=== PATIENT | female | born 1970 | race Caucasian/White ===

== ENCOUNTER 2019-12-27 22:55 | Emergency (ER) | payer OTHER ==
--- NOTE | 2019-12-27 23:22 | ER Document Report ---
ED Medical Screen (RME) - General Chief Complaint: Chest Pain > 30 Stated Complaint: CHEST PAIN Time Seen by Provider: 12/27/19 23:16 Primary Care Provider: JOSÉ LUIS TELLO MD [Primary Care Provider] - Follow up as needed Mode of Arrival: Ambulatory Information source: Patient Notes: 49-year-old female presented to ED for complaint of chest pain. She states this started about an hour ago and goes through to her back. She states is a little better now than it was earlier. She states she did have chest pain about 3 weeks ago states her primary doctor did a EKG chest x-ray and blood work and did not send her to a engineer automated equipment. She states that the pain returned again tonight so she became concerned. She states that when she was seen 3 weeks ago the doctor gave her some Flexeril and she took 1 of those and a 325 mg aspirin when the pain started. She states the pain is a little better than it was earlier. She states she does not smoke or use any illicit drugs but she does drink alcohol once a week. She has a history of high blood pressure ADHD and bladder spasms. She states she has not had any surgeries. She states her mother has a pacemaker and A. fib but all of her mother's brothers and sisters have a cardiac problems. Patient does have epigastric tenderness. So a lipase is also ordered as well as a abdominal ultrasound. I have greeted and performed a rapid initial assessment of this patient. A comprehensive ED assessment and evaluation of the patient, analysis of test results and completion of medical decision making process will be conducted by an additional ED providers. TRAVEL OUTSIDE OF THE [place] 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 bp med Physical Exam - Vital signs Vitals: Temp Pulse Resp BP Pulse Ox 98.0 F 88 20 143/90 H 99 12/27/19 23:06 12/27/19 23:06 12/27/19 23:06 12/27/19 23:06 12/27/19 23:06 Course - Vital Signs Vital signs: Temp Pulse Resp BP Pulse Ox 98.0 F 88 20 143/90 H 99 12/27/19 23:06 12/27/19 23:06 12/27/19 23:06 12/27/19 23:06 12/27/19 23:06 Doctor's Discharge - Discharge Referrals: JOSÉL UIS TELLO MD [Primary Care Provider] - Follow up as needed
--- NOTE | 2019-12-27 23:47 | ER Document Report ---
ED General - General Chief Complaint: Chest Pain > 30 Stated Complaint: CHEST PAIN Time Seen by Provider: 12/27/19 23:16 Primary Care Provider: JOSÉ LUIS TELLO MD [ACTIVE STAFF] - Follow up as needed Mode of Arrival: Ambulatory Notes: 41-year-old female presents emergency department complaining of epigastric abdominal pain that radiates up into her chest and into her back to her right shoulder that started just after eating dinner this evening. Patient describes it as a tightening type pain that comes in waves gets tighter and tighter and then resolves. States that it will come in waves and come back again. States is been going on for several months, did see her primary care physician approximately 3 weeks ago and had an EKG and chest x-ray performed which she states she was told were normal. Denies any nausea, vomiting or shortness of breath with this, denies any radiation to her arms. States that sometimes she can massage the pain away and also states that she tried ibuprofen and Flexeril and it did improve it somewhat. States that since this started happening and she has been concerned that it was her heart she has started taking a daily baby aspirin. Today when it happened she just finished eating a salad, a cream-based oyster soup and a donut. Denies any pain currently. Denies any family history of ischemic cardiac disease in her first-degree relatives however states that 10 of her 11 aunts and uncles have had ischemic coronary artery disease. TRAVEL OUTSIDE OF THE [place] 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 bp med Past Medical History - General Information source: Patient - Social History Smoking Status: Former Smoker - Quit 17 years ago. Frequency of alcohol use: Social Drug Abuse: None Family History: CAD - Aunts and uncles. Mother has atrial fibrillation and a pacemaker., Other - No family history of cholecystectomies or gallstones. Patient has suicidal ideation: No Patient has homicidal ideation: No Review of Systems - Review of Systems Constitutional: No symptoms reported EENT: No symptoms reported Cardiovascular: See HPI, Chest pain. denies: Syncope, Dizziness Respiratory: No symptoms reported. denies: Cough, Hurts to breathe, Short of breath Gastrointestinal: See HPI, Abdominal pain. denies: Diarrhea, Nausea, Vomiting Genitourinary: No symptoms reported -: Yes All other systems reviewed and negative Physical Exam - Vital signs Vitals: Temp Pulse Resp BP Pulse Ox 98.0 F 88 20 143/90 H 99 12/27/19 23:06 12/27/19 23:06 12/27/19 23:06 12/27/19 23:06 12/27/19 23:06 Interpretation: Hypertensive - Notes Notes: GENERAL: Alert, interacts well. No acute distress. HEAD: Normocephalic, atraumatic EYES: Pupils equal, round and reactive to light, extraocular movements intact. ENT: Oral mucosa moist, tongue midline. NECK: Full range of motion, supple, trachea midline. LUNGS: Clear to auscultation bilaterally, no wheezes, rales or rhonchi, no respiratory distress. HEART: Regular rate and rhythm, no murmurs, gallops, rubs. ABDOMEN: Soft, epigastric tenderness to palpation, no right upper quadrant tenderness palpation, no guarding, rigidity, rebounding, nondistended, bowel sounds present in all 4 quadrants. EXTREMITIES: Moves all 4 extremities spontaneously, no edema, radial and d orsalis pedis pulses 2/4 bilaterally. No cyanosis. NEUROLOGICAL: Alert and oriented x3, normal speech. PSYCH: Normal mood, normal affect. SKIN: Warm, Dry, normal turgor, no rashes or lesions noted. Course - Re-evaluation Re-evalutation: 12/28/19 04:03 CBC shows anemia with hemoglobin 11.9, CMP unremarkable, initial troponin is undetectable at 0.012, repeat troponin is detectable but negative at 0.017, EKG is nonischemic, troponin will be repeated in 2 hours to see if it continues to rise and if so does not rise significantly. Patient has been completely chest pain-free since receiving the GI cocktail. Chest X-Ray 12/27/19 23:17 IMPRESSION: No evidence of active intrathoracic disease . Mild chronic change, no adverse change Abdomen Ultrasound 12/28/19 23:18 IMPRESSION: Contracted gallbladder related to the patient not being properly n.p.o. giving an appearance of mild gallbladder wall thickening. If there is high clinical concern for gallbladder disease would recommend repeat right upper quadrant ultrasound when the patient is properly n.p.o. and/or follow-up hepatobiliary scan. 12/28/19 06:04 Troponin has completely normalized. Patient will be discharged to home. - Vital Signs Vital signs: Temp Pulse Resp BP Pulse Ox 98.5 F 88 13 140/102 H 99 12/28/19 03:17 12/27/19 23:06 12/28/19 04:01 12/28/19 04:01 12/28/19 04:01 - Laboratory Result Diagrams: 12/28/19 00:47 12/28/19 00:47 Laboratory results interpreted by me: 12/28/19 00:47 Hgb 11.9 L Hct 34.9 L RDW 16.0 H - EKG Interpretation by Me Additional EKG results interpreted by me: 12/27/19 23:46 EKG shows sinus rhythm at a rate of 84, left axis deviation, normal intervals, less than [address] segment elevation in aVR, no other ST segment elevations or depressions, poor R wave progression per my interpretation. Discharge - Discharge Clinical Impression: Chest pain with low risk for cardiac etiology Condition: Stable Disposition: HOME, SELF-CARE Additional Instructions: Chest Pain of Unclear Cause The exact cause of your chest pain isn't clear. Fortunately, there is no evidence of a dangerous medical condition. Further testing may be required to find the source of the pain. Most often, we find that this pain is coming from the chest wall -- the muscles or rib joints in the chest. But chest pain can come from the lung and lung lining, the esophagus, the heart valves or heart lining, and even the stomach or gallbladder. Rest. Eat lightly until the pain is gone. We may prescribe medicine for pain and inflammation. You should call the physician immediately if the pain radiates to the shoulder, jaw or arms; if you start to run a fever or develop a cough; or if you develop shortness of breath, or other new or alarming symptoms. I suspect your pain is coming from increased acid production in your stomach and possibly refluxing in your throat which is causing esophageal spasm which is causing the tightness in your chest. Please take the antacid of your choice available [id number] such as Pepcid or Zantac 1 tablet twice a day for at least the next month. Please keep a symptom diary as well that includes what foods you are eating before your symptoms show up. It is possible that your symptoms are coming from your gallbladder. Today your gallbladder did not show any signs of infection or obstruction however you can still have what is called biliary colic. Biliary colic can be where when you eat greasy or fatty foods a causes pain when your gallbladder squeezes. This can be further investigated by your primary care physician through a HIDA scan if you notice the pain only shows up when you eat greasy or fatty foods. Prescriptions: Famotidine [Pepcid 20 mg Tablet] 20 mg PO BID #60 tablet Forms: Return to Work Referrals: GLADIS ORTIZ MD [HONORARY] - Follow up as needed
--- NOTE | 2019-12-27 23:50 | RADIOLOGY REPORT (SQ) ---
CLINICAL INDICATION: Center of her chest goes through to her back. TECHNIQUE: PA and lateral views were obtained of the chest COMPARISON: August 14, 2014. FINDINGS: The cardiomediastinal silhouette is normal. The lungs are grossly clear. No evidence of effusion or pneumothorax. Visualized bones are unremarkable. . IMPRESSION: No evidence of active intrathoracic disease . Mild chronic change, no adverse change
[2019-12-28] MEDS ORDERED: MAG HYDROX/AL HYDROX/SIMETH SUSP 30 ML UDCUP PO ONE (00:01)
[2019-12-28] MEDS ORDERED: LIDOCAINE 2% VISCOUS SOLN 15 ML UDCUP PO ONE (00:01)
[2019-12-28] MEDS ORDERED: METOCLOPRAMIDE HCL ORAL SOLN 10 MG/10 ML UDCUP PO ONE (00:01)
[2019-12-28 00:56] LABS: ABSOLUTE BASOPHILS # (AUTO) 0.1 10^3/uL (0.0-0.2); ABSOLUTE EOSINOPHILS # (AUTO) 0.3 10^3/uL (0.0-0.6); ABSOLUTE LYMPHOCYTES (AUTO) 2.9 10^3/uL (0.5-4.7); ABSOLUTE MONOCYTES (AUTO) 0.8 10^3/uL (0.1-1.4); ABSOLUTE NEUT (AUTO) 5.4 10^3/uL (1.7-8.2); BASOPHILS % (AUTO) 0.5 % (0-2); EOSINOPHILS % (AUTO) 2.9 % (0-6); HEMATOCRIT 34.9 % (36.0-47.0); HEMOGLOBIN 11.9 g/dL (12.0-15.5); LYMPHOCYTES % (AUTO) 30.8 % (13-45); MEAN CORPUSCULAR HEMOGLOBIN 28.2 pg (27.0-33.4); MEAN CORPUSCULAR HGB CONC 34.1 g/dL (32.0-36.0); MEAN CORPUSCULAR VOLUME 83 fl (80-97); MONOCYTES % (AUTO) 8.9 % (3-13); PLATELET COUNT 422 10^3/uL (150-450); RED BLOOD COUNT 4.21 10^6/uL (3.72-5.28); SEGMENTED NEUTROPHILS % (AUTO) 56.9 % (42-78); TOTAL CELLS COUNTED % (AUTO) 100 %; WHITE BLOOD COUNT 9.5 10^3/uL (4.0-10.5)
[2019-12-28 01:26] LABS: ALKALINE PHOSPHATASE 87 U/L (38-126); ANION GAP 7 (5-19); ASPARTATE AMINO TRANSFERASE 29 U/L (14-36); BILIRUBIN,DIRECT 0.2 mg/dL (0.0-0.4); BILIRUBIN,TOTAL 0.2 mg/dL (0.2-1.3); BLOOD UREA NITROGEN 11 mg/dL (7-20); CALCIUM 9.4 mg/dL (8.4-10.2); CARBON DIOXIDE 28 mmol/L (22-30); CHLORIDE 103 mmol/L (98-107); GLUCOSE 90 mg/dL (75-110); POTASSIUM 4.6 mmol/L (3.6-5.0); TOTAL PROTEIN 7.1 g/dL (6.3-8.2)
--- NOTE | 2019-12-28 01:31 | RADIOLOGY REPORT (SQ) ---
Ultrasound right upper quadrant on 12/28/2019 Clinical indications: Epigastric pain radiating to back COMPARISON: None FINDINGS: Multiple sonographic images are obtained throughout the right upper quadrant, both transverse and sagittal images are obtained. Visualized pancreas is unremarkable. Visualized liver is homogeneous without focal liver lesion or evidence of intrahepatic biliary ductal dilatation. Right kidney shows no hydronephrosis. Gallbladder is contracted. This is likely just related to the patient not being properly n.p.o. This gives an appearance of mild gallbladder wall thickening. No gallstones or pericholecystic fluid is noted. Common duct measures 2 mm which is within normal limits mitigating against obstruction of the biliary tree. IMPRESSION: Contracted gallbladder related to the patient not being properly n.p.o. giving an appearance of mild gallbladder wall thickening. If there is high clinical concern for gallbladder disease would recommend repeat right upper quadrant ultrasound when the patient is properly n.p.o. and/or follow-up hepatobiliary scan.
[2019-12-28 06:07] VITALS: BP 143/85
--- NOTE | 2019-12-28 08:29 | EKG REPORT ---
SEVERITY:- ABNORMAL ECG - SINUS RHYTHM CONSIDER ANTEROSEPTAL INFARCT : Confirmed by: Rell Arevalo MD 28-Dec-2019 08:29:03
== END 2019-12-28 06:10 | disposition home or self-care (01) ==
LOC: ER 22:55
DX: R07.9 Chest pain, unspecified (principal); R10.13 Epigastric pain; Z87.891 Personal history of nicotine dependence
CPT/HCPCS: 93005; 99285; 36415; 83690; 83735; 85025; 80053; 84484; 71046; 76705; 93010; J3490